=== PATIENT | male | born 1975 | race Hispanic/Latino ===

== ENCOUNTER 2019-04-27 10:30 | Emergency (ER) | payer OTHER ==
[~2019-04-27] VITALS: Ht 170.2 cm; Wt 71.2 kg
[2019-04-27] MEDS ORDERED: BACITRACIN ZINC 0.9GM TP ONE ×2 (10:45)
== END 2019-04-27 10:48 | disposition home or self-care (01) ==
LOC: ER 10:30
DX: S01.81XA Laceration without foreign body of other part of head, initial encounter (principal); W31.89XA Contact with other specified machinery, initial encounter; Y99.0 Civilian activity done for income or pay
CPT/HCPCS: 99283